=== PATIENT | male | born 1960 | race Caucasian/White ===

== ENCOUNTER 2017-10-08 11:08 | Emergency (ER) | payer SELFPAY ==
[2017-10-08] MEDS: Lidocaine 1% 20 ML MDV INJECT ONE (11:40)
--- NOTE | 2017-10-08 11:48 | EDM.PDOC ---
ED HPI GENERAL MEDICAL PROBLEM - General Chief Complaint: Laceration Stated Complaint: laceration right elbow Time Seen by Provider: 10/08/17 11:43 Source of Information: Reports: Patient History Limitations: Reports: No Limitations - History of Present Illness INITIAL COMMENTS - FREE TEXT/NARRATIVE: Patient is a 56-year-old gentleman who presents to the emergency department this afternoon with a complaint of laceration to right elbow. Patient states that he accidentally cut elbow on sharp piece of metal while working just prior to arrival. Patient is up-to-date with tetanus, given 3 years ago. Patient denies any other injury. 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 [No Known Home Meds] 10/08/17 [History] Social & Family History - Tobacco Use Smoking Status *Q: Former Smoker Used Tobacco, but Quit: Yes Month/Year Tobacco Last Used: 2009 Second Hand Smoke Exposure: Yes - Caffeine Use Caffeine Use: Reports: Coffee - Recreational Drug Use Recreational Drug Use: No ED ROS GENERAL - Review of Systems Review Of Systems: ROS reveals no pertinent complaints other than HPI. Constitutional: Reports: No Symptoms HEENT: Reports: No Symptoms Respiratory: Reports: No Symptoms Cardiovascular: Reports: No Symptoms Endocrine: Reports: No Symptoms GI/Abdominal: Reports: No Symptoms : Reports: No Symptoms Musculoskeletal: Reports: No Symptoms Skin: Reports: Wound (Laceration to right elbow) Neurological: Reports: No Symptoms Psychiatric: Reports: No Symptoms Hematologic/Lymphatic: Reports: No Symptoms Immunologic: Reports: No Symptoms ED EXAM, SKIN/RASH Exam: See Below Exam Limited By: No Limitations General Appearance: Alert, WD/WN, No Apparent Distress Throat/Mouth: Normal Inspection, Normal Oropharynx, No Airway Compromise Head: Atraumatic, Normocephalic Respiratory/Chest: No Respiratory Distress Extremities: Other (3 cm linear laceration to left posterior elbow. No tendon involvement or foreign body noted.) Neurological: Alert, Oriented, Normal Cognition Psychiatric: Normal Affect, Normal Mood Skin: Warm, Dry, Normal Color, No Rash Location, Skin: Upper Extremity, Right ED SKIN PROCEDURES - Laceration/Wound Repair Right Posterior Elbow Lac/Wound length In cm: 3 Appearance: Superficial Distal NVT: Neuro & Vascular Intact, No Tendon Injury Anesthetic Type: Local Local Anesthesia - Lidocaine (Xylocaine): 1% Plain Local Anesthetic Volume: 2cc Skin Prep: Providone-Iodine (Betadine) Exploration/Debridement/Repair: Wound Explored, Explored to Base Closed with: Kirby # of Sutures: 6 Sterile Dressing Applied: Nurse Tetanus Status Addressed: Yes Complications: No Course - Vital Signs Last Recorded V/S: Last Vital Signs Temp 96.6 F 10/08/17 11:18 Pulse 97 10/08/17 11:18 Resp 20 10/08/17 11:18 BP 155/79 H 10/08/17 11:18 Pulse Ox 98 10/08/17 11:18 - Orders/Labs/Meds Meds: Medications Discontinued Medications Generic Name Dose Route Start Last Admin Trade Name Kb PRN Reason Stop Dose Admin Lidocaine HCl Confirm 10/08/17 11:32 Xylocaine 1% Administered 10/08/17 11:33 Dose 20 ml .ROUTE .[facility]-MED ONE - Re-Assessments/Exams Free Text/Narrative Re-Assessment/Exam: 10/08/17 11:48 Patient afebrile, nontoxic appearing, vital signs stable, tolerated procedure well. Departure - Departure Time of Disposition: 11:48 Disposition: Home, Self-Care 01 Condition: Good Clinical Impression: Laceration - Discharge Information Instructions: Stitches, Louis, or Adhesive Wound Closure, [id number], Laceration Care, Adult, [id number] Referrals: Juliet Nesbitt PA-C [Primary Care Provider] - Additional Instructions: Follow-up at clinic in 10 days for staple removal. Return to emergency department sooner if symptoms continue or worsen. - Assessment/Plan Assessment:: Right elbow laceration repair Plan: Follow-up at clinic in 10 days for staple removal
[2017-10-08] MEDS: Lidocaine 1% 20 ML MDV ONE (12:05)
== END 2017-10-08 11:50 | disposition home or self-care (01) ==
LOC: KA.ED 11:08
DX: S51.011A Laceration without foreign body of right elbow, initial encounter (principal); W26.8XXA Contact with other sharp object(s), not elsewhere classified, initial encounter; Z87.891 Personal history of nicotine dependence
CPT/HCPCS: 12002; 99283

== ENCOUNTER 2018-10-04 07:31 | Emergency (ER) | payer OTHER ==
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
[2018-10-04 09:11] LABS: THC SCREEN,URINE 50 NG/ML POSITIVE (NEGATIVE)
[2018-10-04 09:12] LABS: BARBITURATE SCREEN,URINE NEGATIVE (NEGATIVE); BENZODIAZEPINES SCREEN,URINE NEGATIVE (NEGATIVE); TCA SCREEN,URINE NEGATIVE (NEGATIVE)
[2018-10-04 09:26] LABS: ANION GAP 14.7 mmol/L (5-15); CHLORIDE,CL 105 mmol/L (98-115); SODIUM,NA 140 mmol/L (136-145)
== END 2018-10-04 09:55 | disposition home or self-care (01) ==
LOC: KA.ED 07:31
DX: R55 Syncope and collapse (principal); F19.20 Other psychoactive substance dependence, uncomplicated; V47.5XXA Car driver injured in collision with fixed or stationary object in traffic accident, initial encounter; Y92.410 Unspecified street and highway as the place of occurrence of the external cause
CPT/HCPCS: 36415; 70450; 72125; 80053; 80305-QW; 81003; 82550; 82553; 84484; 85025; 93005; 99284-25